=== PATIENT | male | born 1995 | race Caucasian/White ===

== ENCOUNTER 2020-07-27 21:00 | Emergency (ER) | payer OTHER ==
[2020-07-27 22:46] LABS: Bilirubin Neg (Negative); Blood, Urine Negative (Negative); Clarity Clear (Clear); Glucose, Urine (Dipstick) Normal (Negative); Ketone, Urine Negative (Negative); Leukocyte Negative (Negative); Nitrite Negative (Negative); Protein, Urine (Dipstick) Negative (Neg-Trace); Urobilinogen Normal mg/dL (Less than 2); pH, Urine 6.5 (5.0-9.0)
[2020-07-27] MEDS ORDERED: Acetaminophen 500 MG TAB ONE (22:56)
[2020-07-27 23:06] LABS: ALT (SGPT) 29 U/L (8-55); AST (SGOT) 31 U/L (5-34); Albumin 4.1 g/dL (3.5-5.0); Alkaline Phosphatase 72 U/L (40-110); Anion Gap 14 mmol/L (10-20); BUN (Urea Nitrogen) 7 mg/dL (8.9-20.6); Bilirubin, Total 0.4 mg/dL (0.2-1.2); CK (CPK) 149 U/L (30-200); Calc. Creatinine Clearance 0 mL/min (70-130); Calcium 8.6 mg/dL (7.8-10.44); Carbon Dioxide 24 mmol/L (22-29); Chloride 100 mmol/L (98-107); Globulin 2.8 g/dL (2.4-3.5); Glucose 95 mg/dL (70-105); Magnesium 1.8 mg/dL (1.6-2.6); Potassium 4.2 mmol/L (3.5-5.1); Protein, Total 6.9 g/dL (6.0-8.3); Sodium 134 mmol/L (136-145)
[2020-07-27 23:07] LABS: Hemoglobin 15.7 g/dL (13.5-17.5); Mean Corpuscular HGB CONC 33.1 g/dL (32.0-36.0); Mean Corpuscular Hemoglobin 29.7 pg (27.0-33.0); Mean Corpuscular Volume 89.8 fl (81.2-95.1); Mean Platelet Volume 10.1 fl (7.4-10.4); Platelet Count 127 10x3/uL (150-450); RBC Distribution Width 11.7 % (11.5-14.5); Red Blood Cell (RBC) Count 5.28 10x6/uL (4.32-5.72); White Blood Cell (WBC) Count 2.3 10x3/uL (3.5-10.5)
[2020-07-27 23:56] LABS: Band 23 % (5-11); Lymphocytes 13 % (21-51); Monocytes 21 % (0-10); Neutrophil 35 % (42-75); Reactive Lymphocytes 7 % (0-10)
[2020-07-27 23:57] LABS: Large Platelets SLIGHT; Platelet Morphology Comment Appears Decreased
[2020-07-27 23:58] LABS: MDiff Complete? YES; Manual Diff?? YES; RBC Morphology Normal; Reflex for Review?? YES
== END 2020-07-28 00:03 | disposition home or self-care (01) ==
LOC: CSHERS 21:00
DX: R10.84 Generalized abdominal pain (principal); R25.2 Cramp and spasm
CPT/HCPCS: 36415; 80053; 81003; 82550; 83735; 84484; 85025; 85060; 93005